=== PATIENT | male | born 1945 | race Two or more races ===

== ENCOUNTER 2017-02-11 17:47 | Emergency (ER) | payer MEDICAID ==
[~2017-02-11] VITALS: Ht 152.4 cm; Wt 53.5 kg
[2017-02-11 18:54] LABS: Basophils # (auto) 0 uL; Basophils % (auto) 0.7 % (0.0-2.0); Eosinophils # (auto) 0.3 uL; Eosinophils % (auto) 5.6 % (0.0-7.0); Hemoglobin 15.3 g/dL (13.5-17.5); Lymphocytes # (auto) 2.5 uL; Lymphocytes % (auto) 41.1 % (10.0-50.0); Mean Corpuscular Hemoglobin 30.7 pg (28.0-32.0); Mean Corpuscular Hgb Conc. 33.2 g/dL (32.0-36.0); Mean Corpuscular Volume 92.5 fL (80.0-100.0); Mean Platelet Volume 8.4 fL (7.4-10.4); Monocytes # (auto) 0.4 uL; Monocytes % (auto) 6.2 % (0.0-12.0); Neutrophils # (auto) 2.8 uL; Neutrophils % (auto) 46.4 % (37.0-80.0); Platelet Count (auto) 303 10^3/uL (140-450); Red Cell Distribution Width 13.8 % (11.6-16.0); White Blood Cell 6.1 10^3/uL (4.4-10.8)
[2017-02-11 19:20] LABS: BUN/Creatinine Ratio 14.5; Bilirubin, Total 0.3 mg/dL (0.2-1.0); Calcium 8.8 mg/dL (8.5-10.1); Total Protein 7.7 g/dL (6.4-8.2)
[2017-02-11 21:29] LABS: Urine RBC None Seen /hpf (0 - 3)
[2017-02-11 21:53] LABS: Urine Bilirubin Negative (Negative); Urine Blood TRACE /uL (Negative); Urine Color Yellow (Yellow); Urine Glucose Normal (Normal); Urine Ketone Negative (Negative); Urine Nitrite Negative (Negative); Urine Urobilinogen Normal (Negative); Urine pH 5.5 (5.0-8.0)
[2017-02-11] MEDS ORDERED: MORPHINE SULF INJ 2 MG/ML SYRINGE 1ML IV ONE (22:45)
[2017-02-11] MEDS ORDERED: ONDANSETRON HCL 4 MG/2 ML VIAL IV ONE (22:45)
[2017-02-11 23:35] VITALS: BP 137/83
== END 2017-02-12 00:18 | disposition home or self-care (01) ==
LOC: ER 17:52
DX: S19.9XXA Unspecified injury of neck, initial encounter (principal); R33.9 Retention of urine, unspecified; R51 Headache; I10 Essential (primary) hypertension; W19.XXXA Unspecified fall, initial encounter; Y93.89 Activity, other specified; Y99.8 Other external cause status; Y92.89 Other specified places as the place of occurrence of the external cause
CPT/HCPCS: 36415; 51702; 70450; 71010; 72125; 80053; 80320; 81001; 85025; 96374; 96375; 99285; J2270; J2405

== ENCOUNTER 2018-12-18 11:33 | Emergency (ER) | payer MEDICAID ==
[~2018-12-18] VITALS: Ht 160 cm; Wt 50.8 kg
[2018-12-18 12:23] LABS: Basophils # (auto) 0.1 uL; Eosinophils # (auto) 0.2 uL; Eosinophils % (auto) 3.5 % (0.0-7.0); Hematocrit 45.5 % (41.0-53.0); Hemoglobin 15.5 g/dL (13.5-17.5); Lymphocytes # (auto) 1.7 uL; Lymphocytes % (auto) 26.4 % (10.0-50.0); Mean Corpuscular Hemoglobin 31.5 pg (28.0-32.0); Mean Corpuscular Hgb Conc. 33.9 g/dL (32.0-36.0); Mean Corpuscular Volume 92.7 fL (80.0-100.0); Monocytes # (auto) 0.5 uL; Monocytes % (auto) 7.6 % (0.0-12.0); Neutrophils % (auto) 61.5 % (37.0-80.0); Nucleated Red Blood Cells % 0.1 %; Platelet Count (auto) 263 10^3/uL (140-450); Red Blood Cells 4.91 10^6/uL (4.5-5.90); Red Cell Distribution Width 14.4 % (11.8-14.3); White Blood Cell 6.4 10^3/uL (4.4-10.8)
[2018-12-18 12:37] LABS: Albumin 3.8 g/dL (3.4-5.0); Anion Gap 5 (5-15); Blood Urea Nitrogen 13 mg/dL (7-18); Calcium 8.7 mg/dL (8.5-10.1); Carbon Dioxide 26 mmol/L (21-32); Chloride 108 mmol/L (98-107); Glucose 105 mg/dL (74-106); Potassium 3.7 mmol/L (3.5-5.1); Sodium 139 mmol/L (136-145)
[2018-12-18 12:45] LABS: Alanine Aminotransferase 14 U/L (16-61); Alkaline Phosphatase 98 U/L (45-117); Aspartate Aminotransferase 18 U/L (15-37); BUN/Creatinine Ratio 18.3; Bilirubin, Total 0.5 mg/dL (0.2-1.0); GFR African American 140 mL/min; GFR Non-African American 116 mL/min; Total Protein 7.8 g/dL (6.4-8.2)
[2018-12-18 15:20] VITALS: BP 143/98
[2018-12-18] MEDS ORDERED: ACETAMINOPHEN 500 MG TAB PO ONE ×2 (15:23→15:30)
== END 2018-12-18 15:31 | disposition home or self-care (01) ==
LOC: ER 11:36
DX: R42 Dizziness and giddiness (principal); M54.2 Cervicalgia; I10 Essential (primary) hypertension
CPT/HCPCS: 36415; 70450; 80053; 84484; 85025; 93005

== ENCOUNTER 2021-10-06 17:19 | Emergency (ER) | payer MEDICAID ==
[~2021-10-06] VITALS: Ht 154.9 cm; Wt 49.9 kg
[2021-10-07 01:49] VITALS: BP 146/99
== END 2021-10-07 02:11 | disposition home or self-care (01) ==
LOC: ER 17:19
DX: R33.9 Retention of urine, unspecified (principal); I10 Essential (primary) hypertension
CPT/HCPCS: 51702

== ENCOUNTER 2022-01-04 12:48 | Emergency (ER) | payer MEDICAID ==
[~2022-01-04] VITALS: Ht 162.6 cm; Wt 53.5 kg
[2022-01-04 14:02] LABS: Basophils # (auto) 0.1 10 ^3/uL (0-0.2); Basophils % (auto) 0.8 % (0.0-2.0); Eosinophils # (auto) 0.3 10 ^3/uL (0-0.8); Eosinophils % (auto) 4.8 % (0.0-7.0); Hematocrit 42.1 % (41.0-53.0); Hemoglobin 14.2 g/dL (13.5-17.5); Lymphocytes # (auto) 2.7 10 ^3/uL (0.4-5.4); Lymphocytes % (auto) 40.4 % (10.0-50.0); Mean Corpuscular Hemoglobin 30.6 pg (28.0-32.0); Mean Corpuscular Hgb Conc. 33.7 g/dL (32.0-36.0); Mean Corpuscular Volume 90.6 fL (80.0-100.0); Monocytes # (auto) 0.5 10 ^3/uL (0-1.3); Monocytes % (auto) 7.6 % (0.0-12.0); Neutrophils % (auto) 46.4 % (37.0-80.0); Red Blood Cells 4.64 10^6/uL (4.5-5.90); Red Cell Distribution Width 13.6 % (11.8-14.3); White Blood Cell 6.6 10^3/uL (4.4-10.8)
[2022-01-04 14:29] LABS: Albumin 3.5 g/dL (3.4-5.0); BUN/Creatinine Ratio 15.7; Calcium 8.6 mg/dL (8.5-10.1); Magnesium 2.5 mg/dL (1.6-2.6); Potassium 3.7 mmol/L (3.5-5.1)
[2022-01-04 14:34] LABS: Bilirubin, Total 0.6 mg/dL (0.2-1.0); Total Protein 7.1 g/dL (6.4-8.2)
[2022-01-04 18:46] VITALS: BP 124/78
== END 2022-01-04 18:49 | disposition home or self-care (01) ==
LOC: ER 12:48
DX: F41.9 Anxiety disorder, unspecified (principal); F12.10 Cannabis abuse, uncomplicated
CPT/HCPCS: 36415; 71045; 80053; 83735; 83880; 84484; 85025; 93005; 99285; J7050

== ENCOUNTER 2023-05-05 09:27 | Inpatient (IN) | payer SELFPAY ==
[~2023-05-05] VITALS: Ht 157.5 cm; Wt 56.5 kg
[2023-05-05] MEDS ORDERED: ACCU-CHEK COMFORT CURVE STRIP VI ONE (09:45)
[2023-05-05 10:07] LABS: Basophils # (auto) 0 10 ^3/uL (0-0.2); Basophils % (auto) 0.7 % (0.0-2.0); Eosinophils # (auto) 0.4 10 ^3/uL (0-0.8); Eosinophils % (auto) 5.7 % (0.0-7.0); Hematocrit 42.8 % (41.0-53.0); Hemoglobin 14.3 g/dL (13.5-17.5); Lymphocytes # (auto) 2.4 10 ^3/uL (0.4-5.4); Mean Corpuscular Hemoglobin 30.8 pg (28.0-32.0); Mean Corpuscular Hgb Conc. 33.5 g/dL (32.0-36.0); Mean Corpuscular Volume 92.1 fL (80.0-100.0); Monocytes # (auto) 0.4 10 ^3/uL (0-1.3); Monocytes % (auto) 6.4 % (0.0-12.0); Neutrophils # (auto) 3.1 10 ^3/uL (1.6-8.6); Neutrophils % (auto) 49.2 % (37.0-80.0); Nucleated Red Blood Cells % 0.1 %; Red Blood Cells 4.65 10^6/uL (4.5-5.90); Red Cell Distribution Width 14.1 % (11.8-14.3); White Blood Cell 6.3 10^3/uL (4.4-10.8)
[2023-05-05 10:27] LABS: Calcium 8.9 mg/dL (8.5-10.1); Potassium 4.9 mmol/L (3.5-5.1)
[2023-05-05 10:32] LABS: Albumin 3.6 g/dL (3.4-5.0); BUN/Creatinine Ratio 20.9 (10.0-20.0); Bilirubin, Total 0.6 mg/dL (0.2-1.0); Total Protein 6.9 g/dL (6.4-8.2)
[2023-05-05 10:43] LABS: Urine Bacteria NONE SEEN /hpf (None Seen); Urine Blood Negative /uL (Negative); Urine Specific Gravity 1.019 (1.001-1.035); Urine WBC 1 /hpf (0 - 3)
[2023-05-05] MEDS ORDERED: NITROGLYCERIN 0.4 MG SL TAB SL PRN (14:15)
[2023-05-05] MEDS ORDERED: MORPHINE SULFATE INJ 2 MG/ml SYRG IV PRN (14:15)
[2023-05-05 15:45] LABS: Alcohol, Urine < 3.0 mg/dL (0-10); Amphetamine Screen, Urine NEGATIVE (NEGATIVE); Barbiturate Scree,Urine NEGATIVE (NEGATIVE); Benzodiazephine Screen, Urine POSITIVE (NEGATIVE); Cannabinoid Screen, Urine POSITIVE (NEGATIVE); Cocaine Screen, Urine NEGATIVE (NEGATIVE)
[2023-05-05 15:53] LABS: Opiate Scree,Urine NEGATIVE (NEGATIVE); Phencyclidine Screen, Urine NEGATIVE (NEGATIVE)
[2023-05-05 16:35] VITALS: PULSE 50; RESP 18; O2SAT 100
[2023-05-05] MEDS: ACETAMINOPHEN 325 MG TAB PO PRN (18:23)
[2023-05-05 21:00] VITALS: PULSE 57; RESP 20; O2SAT 97
[2023-05-05] MEDS ORDERED: ATORVASTATIN 20 MG TAB PO SCH (22:00)
[2023-05-05] MEDS ORDERED: hydrALAZINE HCL 20 MG/ML VL IV PRN (23:15)
[2023-05-06 05:32] LABS: Basophils # (auto) 0 10 ^3/uL (0-0.2); Basophils % (auto) 0.9 % (0.0-2.0); Eosinophils # (auto) 0.4 10 ^3/uL (0-0.8); Eosinophils % (auto) 6.7 % (0.0-7.0); Hematocrit 41.7 % (41.0-53.0); Hemoglobin 14.3 g/dL (13.5-17.5); Lymphocytes % (auto) 36.1 % (10.0-50.0); Mean Corpuscular Hemoglobin 31.2 pg (28.0-32.0); Mean Corpuscular Hgb Conc. 34.4 g/dL (32.0-36.0); Mean Corpuscular Volume 90.8 fL (80.0-100.0); Monocytes # (auto) 0.4 10 ^3/uL (0-1.3); Monocytes % (auto) 7.5 % (0.0-12.0); Neutrophils # (auto) 2.7 10 ^3/uL (1.6-8.6); Neutrophils % (auto) 48.8 % (37.0-80.0); Nucleated Red Blood Cells % 0.1 %; Red Blood Cells 4.59 10^6/uL (4.5-5.90); Red Cell Distribution Width 14.2 % (11.8-14.3); White Blood Cell 5.5 10^3/uL (4.4-10.8)
[2023-05-06 05:42] LABS: Albumin 3.3 g/dL (3.4-5.0); Calcium 8.8 mg/dL (8.5-10.1); Potassium 4.5 mmol/L (3.5-5.1)
[2023-05-06 05:46] LABS: BUN/Creatinine Ratio 17.7 (10.0-20.0); Bilirubin, Total 0.6 mg/dL (0.2-1.0); Total Protein 6.8 g/dL (6.4-8.2)
[2023-05-06] MEDS ORDERED: ONDANSETRON HCL 4 MG/2 ML VIAL IV PRN (06:00)
[2023-05-06 08:00] VITALS: PULSE 60; RESP 15; O2SAT 97
[2023-05-06 09:30] VITALS: PULSE 58
[2023-05-06 09:57] VITALS: BP 145/51; PULSE 57; RESP 14; TEMP 97.8; O2SAT 95
[2023-05-06] MEDS ORDERED: CLOPIDOGREL BISULFATE 75 MG TAB PO SCH (10:00)
[2023-05-06] MEDS ORDERED: ASPirin-EC 81 mg tab PO SCH (10:00)
[2023-05-06] MEDS ORDERED: ENOXAPARIN SOD 40 MG/0.4 ML SYRINGE SC SCH (10:00)
[2023-05-06] MEDS ORDERED: PANTOPRAZOLE 40 MG TAB PO SCH (10:00)
[2023-05-06] MEDS: ACETAMINOPHEN 325 MG TAB PO PRN (11:19)
[2023-05-06 13:00] VITALS: BP 145/100; PULSE 72; RESP 16; TEMP 97.5; O2SAT 95
[2023-05-06] MEDS ORDERED: KETOROLAC TROMETH 30 MG/ML 1ML VIAL IV ONE (16:00)
== END 2023-05-06 16:30 | disposition home or self-care (01) | DRG 93 ==
LOC: ER 09:27 → TELE 14:09 → TELE-CENTR 05-06 09:34
PROVIDERS: ADMIT Internal Medicine; ATTEND Internal Medicine
DX: R26.89 Other abnormalities of gait and mobility (principal); R42 Dizziness and giddiness; R55 Syncope and collapse; F12.10 Cannabis abuse, uncomplicated; M54.2 Cervicalgia; I10 Essential (primary) hypertension; Z81.8 Family history of other mental and behavioral disorders; Z82.0 Family history of epilepsy and other diseases of the nervous system; Z82.49 Family history of ischemic heart disease and other diseases of the circulatory system; Z82.5 Family history of asthma and other chronic lower respiratory diseases; Z83.3 Family history of diabetes mellitus
CPT/HCPCS: 36415; 70450; 80053; 80061; 80307; 81001; 82962; 83036; 84443; 84484; 85025; 93306; 93886; 96374; G0378; J1885

== ENCOUNTER 2023-07-20 08:26 | Emergency (ER) | payer MEDICAID ==
[~2023-07-20] VITALS: Ht 160 cm; Wt 48.6 kg
[2023-07-20 09:35] LABS: Urine WBC None Seen /hpf (0 - 3)
[2023-07-20 10:36] LABS: Alanine Aminotransferase 10 U/L (7-40); Alkaline Phosphatase 78 U/L (46-116); Anion Gap 6 (5-15); Aspartate Aminotransferase 21 U/L (13-40); Bilirubin, Total 0.8 mg/dL (0.2-1.0); Blood Urea Nitrogen 10 mg/dL (9-23); Calcium 9.3 mg/dL (8.5-10.1); Carbon Dioxide 27 mmol/L (20-30); Chloride 109 mmol/L (98-107); Glucose 86 mg/dL (74-106); Potassium 4.4 mmol/L (3.5-5.1); Sodium 142 mmol/L (136-145); Total Protein 6.6 g/dL (5.7-8.2)
[2023-07-20 12:37] LABS: Urine Bacteria NONE SEEN /hpf (None Seen); Urine Mucus FEW (None Seen)
[2023-07-20 12:51] LABS: Urine Clarity CLEAR (Clear)
[2023-07-20 12:52] LABS: Urine Blood Normal /uL (Negative); Urine Protein, UAD Trace (Negative); Urine Urobilinogen Normal (Negative)
[2023-07-20 12:56] LABS: Urine Color Amber (Yellow)
[2023-07-20] MEDS ORDERED: CYANOCOBALAMIN (B-12) 1000 MCG/1 ML VIAL IM ONE (13:00)
[2023-07-20 14:03] VITALS: BP 158/81; PULSE 61; RESP 18; TEMP 98.2; O2SAT 98
[2023-07-20 14:12] LABS: Basophils # (auto) 0 10 ^3/uL (0-0.2); Basophils % (auto) 0.6 % (0.0-2.0); Eosinophils # (auto) 0.3 10 ^3/uL (0-0.8); Eosinophils % (auto) 5.8 % (0.0-7.0); Hematocrit 43.1 % (41.0-53.0); Hemoglobin 14.6 g/dL (13.5-17.5); Lymphocytes # (auto) 1.5 10 ^3/uL (0.4-5.4); Lymphocytes % (auto) 27.9 % (10.0-50.0); Mean Corpuscular Hemoglobin 31.6 pg (28.0-32.0); Mean Corpuscular Hgb Conc. 33.9 g/dL (32.0-36.0); Mean Corpuscular Volume 93.2 fL (80.0-100.0); Monocytes # (auto) 0.3 10 ^3/uL (0-1.3); Monocytes % (auto) 6.6 % (0.0-12.0); Neutrophils # (auto) 3.1 10 ^3/uL (1.6-8.6); Neutrophils % (auto) 59.1 % (37.0-80.0); Nucleated Red Blood Cells % 0.1 %; Red Blood Cells 4.63 10^6/uL (4.5-5.90); Red Cell Distribution Width 13.9 % (11.8-14.3); White Blood Cell 5.2 10^3/uL (4.4-10.8)
[2023-07-20] MEDS ORDERED: MULT-1018 PO (14:25)
== END 2023-07-20 14:43 | disposition home or self-care (01) ==
LOC: ER 08:26
DX: R53.83 Other fatigue (principal); R06.02 Shortness of breath; F41.9 Anxiety disorder, unspecified
CPT/HCPCS: 36415; 80053; 81001; 84484; 85025; 93005; 96372; 99284; J3420

== ENCOUNTER 2023-08-20 08:59 | Inpatient (IN) | payer MEDICAID ==
[~2023-08-20] VITALS: Ht 144.8 cm; Wt 50.3 kg
[~2023-08-20 08:59] MED LIST: MULT-1018 PO
[2023-08-20] MEDS ORDERED: SODIUM CHLORIDE 0.9% 1,000 ML IV ONE ×2 (09:30)
[2023-08-20 10:02] LABS: Basophils # (auto) 0 10 ^3/uL (0-0.2); Basophils % (auto) 0.7 % (0.0-2.0); Eosinophils # (auto) 0.4 10 ^3/uL (0-0.8); Eosinophils % (auto) 6.5 % (0.0-7.0); Hematocrit 45.1 % (41.0-53.0); Hemoglobin 15.1 g/dL (13.5-17.5); Lymphocytes % (auto) 32.1 % (10.0-50.0); Mean Corpuscular Hemoglobin 31.1 pg (28.0-32.0); Mean Corpuscular Hgb Conc. 33.4 g/dL (32.0-36.0); Mean Corpuscular Volume 93.1 fL (80.0-100.0); Monocytes # (auto) 0.4 10 ^3/uL (0-1.3); Monocytes % (auto) 7.1 % (0.0-12.0); Neutrophils # (auto) 3.4 10 ^3/uL (1.6-8.6); Neutrophils % (auto) 53.6 % (37.0-80.0); Nucleated Red Blood Cells % 0.1 %; Red Blood Cells 4.85 10^6/uL (4.5-5.90); Red Cell Distribution Width 13.9 % (11.8-14.3); White Blood Cell 6.3 10^3/uL (4.4-10.8)
[2023-08-20 10:18] LABS: Albumin 4.4 g/dL (3.2-4.8); Alkaline Phosphatase 90 U/L (46-116); Anion Gap 5 (5-15); Aspartate Aminotransferase 15 U/L (13-40); BUN/Creatinine Ratio 12.8 (10.0-20.0); Bilirubin, Total 0.6 mg/dL (0.2-1.0); Blood Urea Nitrogen 10 mg/dL (9-23); Calcium 9.2 mg/dL (8.5-10.1); Carbon Dioxide 27 mmol/L (20-30); Chloride 111 mmol/L (98-107); Glucose 93 mg/dL (74-106); Potassium 4.5 mmol/L (3.5-5.1); Sodium 143 mmol/L (136-145); Total Protein 7.2 g/dL (5.7-8.2)
[2023-08-20 10:27] LABS: Alanine Aminotransferase 9 U/L (7-40)
[2023-08-20] MEDS ORDERED: MULT-1056 PO (14:09)
[2023-08-20] MEDS ORDERED: HYDROcodone-ACET 5/325MG TAB PO PRN (14:15)
[2023-08-20] MEDS: SODIUM CHLORIDE 0.9% 1,000 ML IV SCH (17:46)
[2023-08-20] MEDS ORDERED: ONDANSETRON HCL 4 MG/2 ML VIAL IV PRN (18:00)
[2023-08-20 22:02] LABS: Urine Bacteria NONE SEEN /hpf (None Seen); Urine Blood Negative /uL (Negative); Urine Clarity Clear (Clear); Urine Color Yellow (Yellow); Urine Protein, UAD Negative (Negative); Urine Urobilinogen Normal (Negative); Urine WBC <1 /hpf (0 - 3); Urine pH 6.5 (5.0-8.0)
[2023-08-20] MEDS: ACETAMINOPHEN 325 MG TAB PO PRN (22:11)
[2023-08-21] MEDS: ACETAMINOPHEN 325 MG TAB PO PRN ×3 (04:45→18:16)
[2023-08-21] MEDS: SODIUM CHLORIDE 0.9% 1,000 ML IV SCH ×2 (04:47→16:50)
[2023-08-21 05:00] VITALS: BP 142/82; PULSE 60; RESP 20; TEMP 97.9; O2SAT 98
[2023-08-21 07:02] LABS: Basophils # (auto) 0 10 ^3/uL (0-0.2); Basophils % (auto) 0.8 % (0.0-2.0); Eosinophils # (auto) 0.4 10 ^3/uL (0-0.8); Eosinophils % (auto) 6.5 % (0.0-7.0); Hematocrit 40.1 % (41.0-53.0); Hemoglobin 13.5 g/dL (13.5-17.5); Lymphocytes # (auto) 1.8 10 ^3/uL (0.4-5.4); Lymphocytes % (auto) 33.4 % (10.0-50.0); Mean Corpuscular Hemoglobin 31.1 pg (28.0-32.0); Mean Corpuscular Hgb Conc. 33.7 g/dL (32.0-36.0); Mean Corpuscular Volume 92.2 fL (80.0-100.0); Monocytes # (auto) 0.5 10 ^3/uL (0-1.3); Monocytes % (auto) 8.9 % (0.0-12.0); Neutrophils # (auto) 2.7 10 ^3/uL (1.6-8.6); Neutrophils % (auto) 50.4 % (37.0-80.0); Nucleated Red Blood Cells % 0.2 %; Red Blood Cells 4.35 10^6/uL (4.5-5.90); Red Cell Distribution Width 14.1 % (11.8-14.3); White Blood Cell 5.4 10^3/uL (4.4-10.8)
[2023-08-21 07:09] LABS: Alanine Aminotransferase 10 U/L (7-40); Albumin 3.6 g/dL (3.2-4.8); Alkaline Phosphatase 73 U/L (46-116); Anion Gap 7 (5-15); Aspartate Aminotransferase 14 U/L (13-40); BUN/Creatinine Ratio 13.8 (10.0-20.0); Blood Urea Nitrogen 9 mg/dL (9-23); Calcium 8.5 mg/dL (8.5-10.1); Carbon Dioxide 23 mmol/L (20-30); Chloride 111 mmol/L (98-107); Glucose 81 mg/dL (74-106); Potassium 3.9 mmol/L (3.5-5.1); Sodium 141 mmol/L (136-145)
[2023-08-21 07:10] LABS: Bilirubin, Total 0.7 mg/dL (0.2-1.0)
[2023-08-21 09:00] VITALS: BP 134/75; PULSE 65; RESP 18; TEMP 98.4; O2SAT 99
[2023-08-21 12:50] VITALS: BP 159/76; PULSE 52; RESP 16; TEMP 98.4; O2SAT 97
[2023-08-21] MEDS: MECLIZINE HCL 25 MG TAB PO SCH ×2 (14:44→21:19)
[2023-08-21 17:00] VITALS: BP 137/104; PULSE 51; RESP 18; TEMP 97.5; O2SAT 99
[2023-08-21 22:00] VITALS: BP 127/80; PULSE 52; RESP 18; TEMP 97.8; O2SAT 97
[2023-08-22] MEDS: ACETAMINOPHEN 325 MG TAB PO PRN ×3 (03:04→21:05)
[2023-08-22 05:00] VITALS: BP 138/78; PULSE 54; RESP 16; TEMP 97.7; O2SAT 98
[2023-08-22] MEDS: MECLIZINE HCL 25 MG TAB PO SCH ×3 (06:13→21:05)
[2023-08-22] MEDS: SODIUM CHLORIDE 0.9% 1,000 ML IV SCH (06:18)
[2023-08-22 08:00] VITALS: PULSE 57; RESP 16; O2SAT 99
[2023-08-22 09:00] VITALS: BP 142/82; PULSE 57; RESP 16; TEMP 97.6; O2SAT 99
[2023-08-22 13:00] VITALS: BP 139/84; PULSE 57; RESP 16; TEMP 98.4; O2SAT 96
[2023-08-22 16:49] VITALS: BP 146/77; PULSE 52; RESP 20; TEMP 98.4; O2SAT 92
[2023-08-22 22:00] VITALS: BP 158/79; PULSE 60; RESP 20; TEMP 98; O2SAT 96
[2023-08-23] MEDS: SODIUM CHLORIDE 0.9% 1,000 ML IV SCH ×3 (02:45→22:15)
[2023-08-23 05:00] VITALS: BP 159/85; PULSE 60; RESP 20; TEMP 97; O2SAT 98
[2023-08-23] MEDS: MECLIZINE HCL 25 MG TAB PO SCH ×4 (06:24→23:21)
[2023-08-23] MEDS: ACETAMINOPHEN 325 MG TAB PO PRN (06:24)
[2023-08-23 08:00] VITALS: BP 156/88; PULSE 55; RESP 21; TEMP 97.7; O2SAT 95
[2023-08-23 08:20] VITALS: BP 163/75; PULSE 55; RESP 21; TEMP 97.7; O2SAT 95
[2023-08-23 12:00] VITALS: BP 155/97; PULSE 57; RESP 23; TEMP 97.9; O2SAT 98
[2023-08-23] MEDS: HYDROmorphone HCL 2 MG TAB PO PRN (12:02)
[2023-08-23 16:00] VITALS: BP 158/93; PULSE 61; RESP 21; TEMP 98.3; O2SAT 96
[2023-08-23 22:00] VITALS: BP 96/72; PULSE 64; RESP 22; TEMP 89.9; O2SAT 97
[2023-08-24] VITALS (7 sets, daily range): BP systolic 100–149; BP diastolic 70–85; PULSE 61–78; RESP 16–22; TEMP 97.7–98.1; O2SAT 96–100
[2023-08-24] MEDS: HYDROmorphone HCL 2 MG TAB PO PRN ×3 (01:49→16:18)
[2023-08-24] MEDS: SODIUM CHLORIDE 0.9% 1,000 ML IV SCH ×2 (01:50→17:08)
[2023-08-24] MEDS: MECLIZINE HCL 25 MG TAB PO SCH ×3 (05:16→22:19)
[2023-08-24] MEDS: ACETAMINOPHEN 325 MG TAB PO PRN (22:23)
[2023-08-25 05:00] VITALS: BP 105/58; PULSE 54; RESP 17; TEMP 98; O2SAT 96
[2023-08-25] MEDS: MECLIZINE HCL 25 MG TAB PO SCH ×2 (06:00→15:03)
[2023-08-25] MEDS: ACETAMINOPHEN 325 MG TAB PO PRN (07:00)
[2023-08-25 08:10] VITALS: BP 137/80; PULSE 57; RESP 19; TEMP 97.6; O2SAT 95
[2023-08-25] MEDS: SODIUM CHLORIDE 0.9% 1,000 ML IV SCH (08:37)
[2023-08-25 09:00] VITALS: BP 137/80; PULSE 57; RESP 19; TEMP 97.6; O2SAT 95
[2023-08-25] MEDS ORDERED: MECL25CH85 PO (11:58)
[2023-08-25] MEDS ORDERED: HYDR2TAB58 PO (11:58)
[2023-08-25 13:00] VITALS: BP 145/83; PULSE 67; RESP 19; TEMP 98.2; O2SAT 98
[2023-08-25 15:10] VITALS: BP 137/80; PULSE 57; RESP 19; TEMP 97.6; O2SAT 95
== END 2023-08-25 18:45 | disposition home or self-care (01) | DRG 115 ==
LOC: ER 08:59 → OVERFLOW 14:08 → WEST WING 21:29
PROVIDERS: ADMIT Nurse Practitioner Family; ATTEND Family Medicine
DX: S09.90XA Unspecified injury of head, initial encounter (principal); F12.10 Cannabis abuse, uncomplicated; I10 Essential (primary) hypertension; Z81.8 Family history of other mental and behavioral disorders; Z82.0 Family history of epilepsy and other diseases of the nervous system; Z82.49 Family history of ischemic heart disease and other diseases of the circulatory system; Z82.5 Family history of asthma and other chronic lower respiratory diseases; Z83.3 Family history of diabetes mellitus; Z88.6 Allergy status to analgesic agent; Z91.81 History of falling; Z71.51 Drug abuse counseling and surveillance of drug abuser; V49.9XXA Car occupant (driver) (passenger) injured in unspecified traffic accident, initial encounter; Y93.89 Activity, other specified; Y92.89 Other specified places as the place of occurrence of the external cause; Y99.8 Other external cause status
CPT/HCPCS: 36415; 70450; 70480; 70551; 71045; 80053; 81001; 84484; 85025; 93005; 97163; G0378; J2405